=== PATIENT | female | born 1960 | race Caucasian/White ===

== ENCOUNTER → 2022-08-03 | Outpatient (CLI) | payer OTHER ==
--- NOTE | 2022-08-03 13:43 | CT ---
EXAMINATION TYPE: CT chest w con DATE OF EXAM: 08/03/2022 COMPARISON: None HISTORY: pleural effusion CT DLP: 254.2 mGycm Automated exposure control for dose reduction was used. CONTRAST: CT scan of the chest is performed with IV Contrast, patient injected with 70cc mL of Isovue 300. FINDINGS: LUNGS: The lungs are grossly clear, there is no concerning parenchymal mass or nodule identified. Par tially loculated left lower lobe effusion measuring up to 1.9 cm in thickness. Pleural-parenchymal at tenuation left upper lobe. The right lung is free of a pleural effusion. The tracheobronchial tree is patent. MEDIASTINUM: There are no greater than 1 cm hilar or mediastinal lymph nodes. No pericardial effusi on is seen. Thoracic aorta is of normal caliber. The heart is not enlarged. Thyroid glandular enlarg ement with multiple lung nodules. UPPER ABDOMEN: Mild hepatic steatosis. Atrophic change right kidney. OTHER: No additional significant abnormality is seen. IMPRESSION: 1 partially loculated left lower lobe pleural effusion with associated pleural parenchyma l density.
== END | disposition home or self-care (01) ==
LOC: RADCTMAIN 11:52
PROVIDERS: ATTEND Internal Medicine Critical Care Medicine
DX: J90 Pleural effusion, not elsewhere classified (principal); J98.4 Other disorders of lung
CPT/HCPCS: 82565; 84520; 71260; 36415; Q9967

== ENCOUNTER → 2023-11-23 | Outpatient (CLI) | payer OTHER ==
--- NOTE | 2023-11-23 18:10 | CTL ---
EXAMINATION TYPE: CT Low Dose Lung DATE OF EXAM ORDERED: 11/23/2023 HISTORY: History of nicotine dependence, smoker, 45 pack-year history. Lung cancer screening CT DLP: 101.[address] CTDI: 3.0 mGy Automated exposure control for dose reduction was used. SCREENING VISIT: First screening visit COMPARISON: CT chest 08/03/2022 TECHNIQUE: Low dose computed tomography scan was performed through the chest at 1 mm thick sections a nd reconstructed images in multiple planes at 1 mm and [address] DIAGNOSTIC QUALITY: Satisfactory FINDINGS: Nodules: Diffuse scattered punctate calcified granulomas. No clinically significant pulmonary nodules . LUNGS: COPD: Severity: None Fibrosis: Severity: None Lymph nodes: Few nonenlarged calcified lymph nodes. Other findings: Linear atelectasis within the left midlung and platelike subsegmental atelectasis wit hin the left lower lobe. RIGHT PLEURAL SPACE: Effusion: None Calcification: None Thickening: None Pneumothorax: None LEFT PLEURAL SPACE: Effusion: Resolved Calcification: None Thickening: None Pneumothorax: None HEART: Heart Size: Mildly Enlarged Coronary Calcification: Small Pericardial Effusion: None OTHER FINDINGS: Upper abdomen: Punctate calcified granuloma within the spleen. The visualized liver is diffusely hypo attenuating consistent with steatosis. Partially visualized atrophic right kidney. Bony thorax: None Supraclavicular region: None Other: Diffusely enlarged thyroid gland with calcified right thyroid nodule. IMPRESSION: 1. No clinically significant pulmonary nodules. Resolution of left pleural effusion with some remain ing subsegmental atelectasis. 2. Diffuse thyroid enlargement redemonstrated. 3. Partially visualized atrophic right kidney. 4. Hepatic steatosis. 5. Sequelae of prior granulomatous disease. CT LUNG RAD AND CT CHEST RECOMMENDATION: Lung-Rad 2 Benign Appearance or Behavior: Continue annual sc reening with LDCT in 12 months. S Modifier (other clinically significant findings): S
== END | disposition home or self-care (01) ==
LOC: RADCTMAIN 06:50
PROVIDERS: ATTEND Internal Medicine Critical Care Medicine
DX: Z12.2 Encounter for screening for malignant neoplasm of respiratory organs (principal); N26.1 Atrophy of kidney (terminal); K76.0 Fatty (change of) liver, not elsewhere classified; E04.9 Nontoxic goiter, unspecified; F17.210 Nicotine dependence, cigarettes, uncomplicated
CPT/HCPCS: 71271